=== PATIENT | male | born 1955 | race Caucasian/White ===

== ENCOUNTER 2023-09-29 20:41 | Inpatient (IN) | payer MEDICARE, OTHER ==
[~2023-09-29] VITALS: Ht 185.4 cm; Wt 79.5 kg
[2023-09-29 22:03] LABS: BASOPHILS % (AUTO) 0.1 % (0.0-2.0); EOSINOPHILS % (AUTO) 0.1 % (0.0-6.0); HEMATOCRIT 36 % (39-51); HEMOGLOBIN 12.3 g/dL (13.5-17.5); LYMPHOCYTES # (AUTO) 0.7 K/uL (0.8-4.8); LYMPHOCYTES % (AUTO) 3.4 % (20.0-44.0); MEAN CORPUSCULAR HEMOGLOBIN 33 PG (26.0-33.0); MEAN CORPUSCULAR HGB CONC 34 g/dl (31.0-36.0); MEAN CORPUSCULAR VOLUME 97 fL (80-96); MONOCYTES # (AUTO) 2.5 K/uL (0.1-1.30); MONOCYTES % (AUTO) 12.7 % (2.0-12.0); NEUTROPHILS # (AUTO) 16.5 K/uL (1.8-8.9); NEUTROPHILS % (AUTO) 83.7 % (43.0-81.0); PLATELET COUNT (AUTO) 327 K/uL (150-450); RED BLOOD CELL COUNT(AUTO) 3.73 MIL/uL (4.5-6.0); RED CELL DISTRIBUTION WIDTH 13.1 % (11.5-15.0); WHITE BLOOD COUNT (AUTO) 19.7 K/uL (4.3-11.0)
[2023-09-29] MEDS ORDERED: VANCOMYCIN 1 GM /D5W 250 ML PB IV ONE (22:09)
[2023-09-29] MEDS ORDERED: CLINDAMYCIN 900 MG/6 ML VIAL ONE (22:09)
[2023-09-29] MEDS ORDERED: LEVOFLOXACIN 750 MG /D5W 150ML 150 ML IV ONE (22:10)
[2023-09-29 22:17] LABS: ALANINE AMINOTRANSFERASE 80 U/L (12-78); ALBUMIN 1.7 g/dL (3.4-5.0); ALKALINE PHOSPHATASE 176 U/L (46-116); ASPARTATE AMINOTRANSFERASE 60 U/L (15-37); BILIRUBIN,DIRECT 0.2 mg/dL (0.0-0.2); BILIRUBIN,TOTAL 0.5 mg/dL (0.2-1.0); CALCIUM, SERUM 7.8 mg/dL (8.5-10.1); CARBON DIOXIDE 26 mmol/L (21-32); CHLORIDE 92 mmol/L (98-107); CREATININE 1.1 mg/dL (0.6-1.3); GLUCOSE 111 mg/dL (74-106); POTASSIUM 3.7 mmol/L (3.5-5.1); SODIUM SERUM 126 mmol/L (136-145); UREA NITROGEN, BLOOD 21 mg/dL (7-18)
[2023-09-29 22:19] LABS: LACTIC ACID 1.1 mmol/L (0.4-2.0)
[2023-09-29 22:27] LABS: INR 0.97 (0.91-1.10); PARTIAL THROMBOPLASTIN TIME 30.5 SEC (24.3-34.3)
[2023-09-29] MEDS: CLINDAMYCIN 900 MG in IV D5W 100 ML IV ONE (22:50)
[2023-09-29 23:00] VITALS: BP 123/75; TEMP 97.5; O2SAT 97
[2023-09-29 23:09] LABS: LYMPHOCYTES % (MANUAL) 1 % (16-48); MONOCYTES % (MANUAL) 11 % (0-11.0); NEUTROPHILS % (MANUAL) 88 (42-76); PLATELET ESTIMATE ADEQUATE
[2023-09-29 23:11] LABS: ANISOCYTOSIS 1+
[2023-09-29 23:26] LABS: APPEARANCE,URINE CLEAR (CLEAR); BILIRUBIN,URINE NEGATIVE (NEGATIVE); BLOOD, URINE NEGATIVE Ery/uL (NEGATIVE); COLOR,URINE YELLOW (YELLOW); KETONES,URINE NEGATIVE (NEGATIVE); LEUKOCYTE ESTERASE ,URINE NEGATIVE (NEGATIVE); NITRITE, URINE NEGATIVE (NEGATIVE); PROTEIN,URINE TRACE mg/dl (NEGATIVE); UGLUCOSE NEGATIVE (NEGATIVE); UROBILINOGEN,URINE 0.2 EU/dL (0.2)
[2023-09-29 23:39] LABS: ADD URINE CULTURE NO; BACTERIA,URINE Rare /HPF (None Seen); RBC,URINE 0-2 /HPF (0-2); SQUAMOUS EPITHELIAL CELL,UR Few /HPF (None Seen); WBC,URINE 0-2 /HPF (0-3)
[2023-09-29] MEDS ORDERED: Calcium Gluconate 0.465 MEQ/ML VIAL IV ONE (23:39)
[2023-09-29] MEDS: Calcium Gluconate 1GM/10ML 4.65 MEQ in IV NS 0.9% 100 ML IV ONE (23:45)
[2023-09-29] MEDS: VANCOMYCIN 1 GM in IV D5W 250 ML IV ONE (23:50)
[2023-09-30] VITALS: BP 123/75; TEMP 97.5; O2SAT 97
[2023-09-30] MEDS ORDERED: ONDANSETRON HCL/PF 4 MG/2 ML VIAL IVP PRN
[2023-09-30] MEDS ORDERED: Z GUARD REMEDY 4 OZ OINT TP PRN
[2023-09-30] MEDS ORDERED: MAG HYDROX/AL HYDROX/SIMETH 30 ML UDC PO PRN
[2023-09-30] MEDS ORDERED: ZOLPIDEM TARTRATE 5 MG TABLET PO PRN
[2023-09-30] MEDS: LEVOFLOXACIN 750 MG /D5W 150ML PIGGYBACK IV ONE (01:47)
[2023-09-30] MEDS: IV NS 0.9% 1,000 ML IV PRN (04:40)
[2023-09-30 06:54] LABS: BASOPHILS % (AUTO) 0.1 % (0.0-2.0); EOSINOPHILS % (AUTO) 0.2 % (0.0-6.0); HEMATOCRIT 33 % (39-51); HEMOGLOBIN 11.2 g/dL (13.5-17.5); LYMPHOCYTES # (AUTO) 0.7 K/uL (0.8-4.8); LYMPHOCYTES % (AUTO) 3.5 % (20.0-44.0); MEAN CORPUSCULAR HEMOGLOBIN 33 PG (26.0-33.0); MEAN CORPUSCULAR HGB CONC 34 g/dl (31.0-36.0); MEAN CORPUSCULAR VOLUME 97 fL (80-96); MONOCYTES # (AUTO) 2.5 K/uL (0.1-1.30); MONOCYTES % (AUTO) 12.9 % (2.0-12.0); NEUTROPHILS # (AUTO) 16.1 K/uL (1.8-8.9); NEUTROPHILS % (AUTO) 83.3 % (43.0-81.0); PLATELET COUNT (AUTO) 303 K/uL (150-450); RED BLOOD CELL COUNT(AUTO) 3.41 MIL/uL (4.5-6.0); WHITE BLOOD COUNT (AUTO) 19.4 K/uL (4.3-11.0)
[2023-09-30 07:08] LABS: THYROID STIMULATING HORMONE 1.21 uIU/mL (0.358-3.74)
[2023-09-30 07:19] LABS: BILIRUBIN,DIRECT 0.2 mg/dL (0.0-0.2); BILIRUBIN,TOTAL 0.6 mg/dL (0.2-1.0); CREATININE 0.9 mg/dL (0.6-1.3); PHOSPHORUS 3.8 mg/dL (2.5-4.9); POTASSIUM 3.9 mmol/L (3.5-5.1); TOTAL PROTEIN, SERUM 5.3 g/dL (6.4-8.2)
[2023-09-30 07:46] LABS: LACTIC ACID 0.8 mmol/L (0.4-2.0)
[2023-09-30 07:59] LABS: ALBUMIN 1.4 g/dL (3.4-5.0)
[2023-09-30 08:00] VITALS: BP 109/53; TEMP 97.2; O2SAT 95
[2023-09-30] MEDS: TRAMADOL HCL 50 MG TABLET PO PRN (08:17)
[2023-09-30] MEDS ORDERED: DILT-4 PO (09:14)
[2023-09-30] MEDS ORDERED: QUET25TA PO (09:14)
[2023-09-30] MEDS ORDERED: RIVA10TA PO (09:14)
[2023-09-30] MEDS ORDERED: ACET1TAB23 PO (09:14)
[2023-09-30] MEDS ORDERED: QUET50TA PO (09:14)
[2023-09-30] MEDS ORDERED: SULF1TAB48 PO (09:14)
[2023-09-30] MEDS ORDERED: VALA10002 PO (09:14)
[2023-09-30] MEDS ORDERED: FURO-145 PO (09:14)
[2023-09-30] MEDS ORDERED: SERT100T PO (09:14)
[2023-09-30] MEDS ORDERED: MEMA10TA PO (09:14)
[2023-09-30] MEDS ORDERED: DONE10TA44 PO (09:14)
[2023-09-30] MEDS ORDERED: ACET-2030 PO (09:14)
[2023-09-30] MEDS: VANCOMYCIN 1 GM in IV D5W 250 ML IV SCH (09:46)
[2023-09-30] MEDS: PANTOPRAZOLE 40 MG VIAL IV SCH (09:46)
[2023-09-30 14:01] LABS: HIV-1 p24 ANTIGEN NON REACTIVE (NONREACTIVE); HIV-1/2 ANTIBODY NON REACTIVE (NONREACTIVE)
[2023-09-30] MEDS ORDERED: IV NS 0.9% 250 ML IV ONE (14:14)
[2023-09-30] MEDS ORDERED: IOHEXOL-300 100 ML VIAL IV ONE (14:14)
[2023-09-30] MEDS ORDERED: CT SWABBABLE VALVE TRANS SET 1 EA INFUS.SET MC ONE (14:14)
[2023-09-30 16:00] VITALS: BP 117/71; TEMP 98.1; O2SAT 98
[2023-09-30] MEDS: LIDOCAINE 1%-EPI 1:100,000 20 ML VIAL TP ONE (16:08)
[2023-09-30] MEDS: CEFTRIAXONE 2 G in IV D5W 100 ML IV SCH (18:16)
[2023-09-30 20:00] VITALS: BP 147/67; TEMP 98.6; O2SAT 98
[2023-09-30] MEDS: MAGNESIUM HYDROXIDE 30 ML UDC PO PRN (22:24)
[2023-10-01 07:36] LABS: CALCIUM, SERUM 8.1 mg/dL (8.5-10.1); CARBON DIOXIDE 29 mmol/L (21-32); CHLORIDE 99 mmol/L (98-107); CREATININE 0.9 mg/dL (0.6-1.3); GLUCOSE 98 mg/dL (74-106); POTASSIUM 4.3 mmol/L (3.5-5.1); SODIUM SERUM 132 mmol/L (136-145); UREA NITROGEN, BLOOD 16 mg/dL (7-18)
[2023-10-01] MEDS: ACETAMINOPHEN 325 MG TABLET PO PRN (07:49)
[2023-10-01 08:00] VITALS: BP 109/86; TEMP 99; O2SAT 98
[2023-10-01 09:52] LABS: BASOPHILS % (AUTO) 0.3 % (0.0-2.0); EOSINOPHILS # (AUTO) 0.1 K/uL (0.0-0.7); EOSINOPHILS % (AUTO) 0.8 % (0.0-6.0); HEMATOCRIT 32 % (39-51); HEMOGLOBIN 10.9 g/dL (13.5-17.5); LYMPHOCYTES # (AUTO) 0.7 K/uL (0.8-4.8); LYMPHOCYTES % (AUTO) 3.8 % (20.0-44.0); MEAN CORPUSCULAR HEMOGLOBIN 33 PG (26.0-33.0); MEAN CORPUSCULAR HGB CONC 34 g/dl (31.0-36.0); MEAN CORPUSCULAR VOLUME 97 fL (80-96); MONOCYTES # (AUTO) 1.8 K/uL (0.1-1.30); MONOCYTES % (AUTO) 9.8 % (2.0-12.0); NEUTROPHILS # (AUTO) 15.3 K/uL (1.8-8.9); NEUTROPHILS % (AUTO) 85.3 % (43.0-81.0); PLATELET COUNT (AUTO) 345 K/uL (150-450); RED BLOOD CELL COUNT(AUTO) 3.28 MIL/uL (4.5-6.0); WHITE BLOOD COUNT (AUTO) 17.9 K/uL (4.3-11.0)
[2023-10-01 10:10] LABS: HEPATITIS B CORE AB, TOTAL Negative (Negative); HEPATITIS B SURFACE AB Non Reactive (.)
[2023-10-01] MEDS: PANTOPRAZOLE 40 MG TABLET.DR PO SCH (10:12)
[2023-10-01 10:47] LABS: PARTIAL THROMBOPLASTIN TIME 29.3 SEC (24.3-34.3); PROTHROMBIN TIME 10.6 SECS (9.2-11.1)
[2023-10-01 16:03] VITALS: BP 108/63; TEMP 98.2; O2SAT 99
[2023-10-01 18:36] LABS: THYROID STIMULATING HORMONE 1.92 uIU/mL (0.358-3.74)
[2023-10-01 20:00] VITALS: BP 129/74; TEMP 98.1; O2SAT 98
[2023-10-01] MEDS: LINEZOLID 600 MG TABLET PO SCH (20:14)
[2023-10-01] MEDS: MORPHINE SULFATE INJ 2 MG/ML DISP.SYRIN IV PRN (20:15)
[2023-10-01] MEDS ORDERED: VANCOMYCIN HCL 1.25 GM in IV D5W 250 ML IV SCH (22:00)
[2023-10-02 07:25] LABS: CALCIUM, SERUM 8.5 mg/dL (8.5-10.1); CREATININE 0.8 mg/dL (0.6-1.3); POTASSIUM 4.1 mmol/L (3.5-5.1)
[2023-10-02 07:30] VITALS: BP 133/68; TEMP 99.1; O2SAT 98
[2023-10-02 16:00] VITALS: BP 126/78; TEMP 97.5; O2SAT 94
[2023-10-02 20:00] VITALS: BP 168/68; TEMP 98.6; O2SAT 98
[2023-10-02 20:26] LABS: BASOPHILS % (AUTO) 0.2 % (0.0-2.0); EOSINOPHILS # (AUTO) 0.2 K/uL (0.0-0.7); EOSINOPHILS % (AUTO) 1.6 % (0.0-6.0); HEMATOCRIT 32 % (39-51); HEMOGLOBIN 10.8 g/dL (13.5-17.5); LYMPHOCYTES # (AUTO) 0.8 K/uL (0.8-4.8); MEAN CORPUSCULAR HEMOGLOBIN 33 PG (26.0-33.0); MEAN CORPUSCULAR HGB CONC 34 g/dl (31.0-36.0); MEAN CORPUSCULAR VOLUME 98 fL (80-96); MONOCYTES # (AUTO) 1.1 K/uL (0.1-1.30); MONOCYTES % (AUTO) 9.9 % (2.0-12.0); NEUTROPHILS # (AUTO) 9.1 K/uL (1.8-8.9); NEUTROPHILS % (AUTO) 81.3 % (43.0-81.0); PLATELET COUNT (AUTO) 387 K/uL (150-450); RED BLOOD CELL COUNT(AUTO) 3.27 MIL/uL (4.5-6.0); RED CELL DISTRIBUTION WIDTH 13.1 % (11.5-15.0); WHITE BLOOD COUNT (AUTO) 11.3 K/uL (4.3-11.0)
[2023-10-02 20:32] LABS: CREATININE 0.9 mg/dL (0.6-1.3)
[2023-10-03] MEDS: HYDROMORPHONE 1 MG/1 ML DISP.SYRIN IV PRN (00:59)
[2023-10-03] MEDS: MORPHINE SULFATE INJ 2 MG/ML DISP.SYRIN IV PRN (05:44)
[2023-10-03 08:00] VITALS: BP 136/81; TEMP 98.2; O2SAT 99
[2023-10-03 10:18] LABS: BASOPHILS % (AUTO) 0.4 % (0.0-2.0); EOSINOPHILS # (AUTO) 0.1 K/uL (0.0-0.7); EOSINOPHILS % (AUTO) 1.4 % (0.0-6.0); HEMATOCRIT 33 % (39-51); HEMOGLOBIN 11.4 g/dL (13.5-17.5); LYMPHOCYTES # (AUTO) 0.7 K/uL (0.8-4.8); LYMPHOCYTES % (AUTO) 6.9 % (20.0-44.0); MEAN CORPUSCULAR HEMOGLOBIN 33 PG (26.0-33.0); MEAN CORPUSCULAR HGB CONC 34 g/dl (31.0-36.0); MEAN CORPUSCULAR VOLUME 97 fL (80-96); MONOCYTES # (AUTO) 0.9 K/uL (0.1-1.30); MONOCYTES % (AUTO) 8.3 % (2.0-12.0); NEUTROPHILS # (AUTO) 8.6 K/uL (1.8-8.9); PLATELET COUNT (AUTO) 430 K/uL (150-450); RED BLOOD CELL COUNT(AUTO) 3.43 MIL/uL (4.5-6.0); RED CELL DISTRIBUTION WIDTH 12.8 % (11.5-15.0); WHITE BLOOD COUNT (AUTO) 10.3 K/uL (4.3-11.0)
[2023-10-03 10:30] LABS: CALCIUM, SERUM 8.7 mg/dL (8.5-10.1); CREATININE 0.8 mg/dL (0.6-1.3); POTASSIUM 3.9 mmol/L (3.5-5.1)
[2023-10-03 16:18] VITALS: BP 119/61; TEMP 98.1; O2SAT 99
[2023-10-03 20:00] VITALS: BP 116/65; TEMP 97.8; O2SAT 97
[2023-10-04 07:30] VITALS: BP 150/87; TEMP 98.2; O2SAT 94
[2023-10-04 07:46] LABS: CALCIUM, SERUM 8.5 mg/dL (8.5-10.1); CREATININE 0.7 mg/dL (0.6-1.3); POTASSIUM 4.2 mmol/L (3.5-5.1)
[2023-10-04] MEDS ORDERED: SERTRALINE HCL 50 MG TABLET PO SCH (09:00)
[2023-10-04] MEDS ORDERED: ONDANSETRON HCL/PF 4 MG/2 ML VIAL IVP PRN (09:00)
[2023-10-04] MEDS: RIVAROXABAN 10 MG TABLET PO SCH (09:05)
[2023-10-04] MEDS: MEMANTINE HCL 5 MG TABLET PO SCH (09:06)
[2023-10-04] MEDS: QUETIAPINE FUMARATE 25 MG TABLET PO SCH (09:06)
[2023-10-04] MEDS: DILTIAZEM HCL CD 240 MG PO SCH (09:07)
[2023-10-04] MEDS: SERTRALINE HCL 50 MG TABLET PO SCH (09:07)
[2023-10-04] MEDS: FUROSEMIDE 20 MG TABLET PO SCH (09:08)
[2023-10-04 11:09] LABS: BASOPHILS % (AUTO) 0.4 % (0.0-2.0); EOSINOPHILS # (AUTO) 0.2 K/uL (0.0-0.7); EOSINOPHILS % (AUTO) 2.1 % (0.0-6.0); HEMATOCRIT 33 % (39-51); HEMOGLOBIN 11.2 g/dL (13.5-17.5); LYMPHOCYTES # (AUTO) 0.6 K/uL (0.8-4.8); LYMPHOCYTES % (AUTO) 8.3 % (20.0-44.0); MEAN CORPUSCULAR HEMOGLOBIN 33 PG (26.0-33.0); MEAN CORPUSCULAR HGB CONC 34 g/dl (31.0-36.0); MEAN CORPUSCULAR VOLUME 97 fL (80-96); MONOCYTES # (AUTO) 0.7 K/uL (0.1-1.30); MONOCYTES % (AUTO) 9.4 % (2.0-12.0); NEUTROPHILS # (AUTO) 6.1 K/uL (1.8-8.9); NEUTROPHILS % (AUTO) 79.8 % (43.0-81.0); PLATELET COUNT (AUTO) 507 K/uL (150-450); RED BLOOD CELL COUNT(AUTO) 3.38 MIL/uL (4.5-6.0); WHITE BLOOD COUNT (AUTO) 7.7 K/uL (4.3-11.0)
[2023-10-04 16:00] VITALS: BP 111/59; TEMP 97.5; O2SAT 99
[2023-10-04] MEDS: DONEPEZIL 5 MG TABLET PO SCH (21:58)
[2023-10-05] VITALS (9 sets, daily range): BP systolic 117–134; BP diastolic 69–73; TEMP 97.9–98.2; O2SAT 95–98
[2023-10-05 07:06] LABS: CALCIUM, SERUM 8.8 mg/dL (8.5-10.1); CREATININE 0.9 mg/dL (0.6-1.3); POTASSIUM 4.3 mmol/L (3.5-5.1)
[2023-10-05] MEDS ORDERED: FLUTICASONE/SALMETEROL DISKUS IH SCH (09:00)
[2023-10-05] MEDS: BUDESONIDE RESPULE INH 0.5 MG/2 ML AMPUL.NEB NEB SCH (09:00)
[2023-10-05] MEDS ORDERED: ALBUTEROL FS 2.5 MG/0.5 ML VIAL.NEB NEB PRN (09:00)
[2023-10-05] MEDS: ALBUTEROL FS 2.5 MG/0.5 ML VIAL.NEB NEB SCH (14:17)
[2023-10-05] MEDS: VANCOMYCIN HCL 1.25 GM in IV D5W 250 ML IV SCH (20:16)
[2023-10-06 08:09] LABS: CALCIUM, SERUM 9.1 mg/dL (8.5-10.1); CREATININE 0.8 mg/dL (0.6-1.3); POTASSIUM 3.6 mmol/L (3.5-5.1)
[2023-10-06 13:32] VITALS: O2SAT 99
[2023-10-06 13:44] VITALS: O2SAT 99
[2023-10-06] MEDS: HYDROCODONE/APAP 5/325MG TABLET PO PRN (14:33)
[2023-10-06 16:00] VITALS: BP 117/71; TEMP 98.4; O2SAT 98
[2023-10-06 16:20] VITALS: O2SAT 96
[2023-10-06 16:39] VITALS: O2SAT 99
[2023-10-06 20:15] VITALS: BP 99/60; TEMP 97.5; O2SAT 97
[2023-10-07] VITALS (13 sets, daily range): BP systolic 94–125; BP diastolic 45–72; TEMP 97.3–98.4; O2SAT 95–99
[2023-10-07] MEDS: HYDROCODONE/APAP 10/325MG TABLET PO PRN (01:29)
[2023-10-07 06:07] LABS: RAPID PLASMA REAGIN QUAL. Non Reactive (Non Reactive)
[2023-10-07 07:12] LABS: BASOPHILS % (AUTO) 0.4 % (0.0-2.0); EOSINOPHILS # (AUTO) 0.2 K/uL (0.0-0.7); EOSINOPHILS % (AUTO) 2.4 % (0.0-6.0); HEMATOCRIT 33 % (39-51); HEMOGLOBIN 11.4 g/dL (13.5-17.5); LYMPHOCYTES # (AUTO) 1.2 K/uL (0.8-4.8); LYMPHOCYTES % (AUTO) 12.9 % (20.0-44.0); MEAN CORPUSCULAR HEMOGLOBIN 33 PG (26.0-33.0); MEAN CORPUSCULAR HGB CONC 34 g/dl (31.0-36.0); MEAN CORPUSCULAR VOLUME 96 fL (80-96); MONOCYTES # (AUTO) 1.3 K/uL (0.1-1.30); NEUTROPHILS # (AUTO) 6.3 K/uL (1.8-8.9); NEUTROPHILS % (AUTO) 70.3 % (43.0-81.0); PLATELET COUNT (AUTO) 632 K/uL (150-450); RED BLOOD CELL COUNT(AUTO) 3.46 MIL/uL (4.5-6.0); RED CELL DISTRIBUTION WIDTH 13.1 % (11.5-15.0)
[2023-10-07 07:44] LABS: CALCIUM, SERUM 8.3 mg/dL (8.5-10.1); CREATININE 0.8 mg/dL (0.6-1.3); POTASSIUM 3.9 mmol/L (3.5-5.1)
[2023-10-07] MEDS: MORPHINE SULFATE INJ 2 MG/ML DISP.SYRIN IV PRN (12:58)
[2023-10-08] VITALS (15 sets, daily range): BP systolic 117–155; BP diastolic 67–71; TEMP 97.3–97.9; O2SAT 91–100
[2023-10-08 06:48] LABS: BASOPHILS # (AUTO) 0.1 K/uL (0.0-0.2); BASOPHILS % (AUTO) 0.5 % (0.0-2.0); EOSINOPHILS # (AUTO) 0.2 K/uL (0.0-0.7); EOSINOPHILS % (AUTO) 1.8 % (0.0-6.0); HEMATOCRIT 37 % (39-51); HEMOGLOBIN 12.5 g/dL (13.5-17.5); LYMPHOCYTES # (AUTO) 1.3 K/uL (0.8-4.8); MEAN CORPUSCULAR HEMOGLOBIN 33 PG (26.0-33.0); MEAN CORPUSCULAR HGB CONC 34 g/dl (31.0-36.0); MEAN CORPUSCULAR VOLUME 97 fL (80-96); MONOCYTES # (AUTO) 1.2 K/uL (0.1-1.30); MONOCYTES % (AUTO) 12.4 % (2.0-12.0); NEUTROPHILS # (AUTO) 7.1 K/uL (1.8-8.9); NEUTROPHILS % (AUTO) 72.3 % (43.0-81.0); PLATELET COUNT (AUTO) 702 K/uL (150-450); RED BLOOD CELL COUNT(AUTO) 3.81 MIL/uL (4.5-6.0); RED CELL DISTRIBUTION WIDTH 12.9 % (11.5-15.0); WHITE BLOOD COUNT (AUTO) 9.8 K/uL (4.3-11.0)
[2023-10-08 07:21] LABS: CREATININE 0.8 mg/dL (0.6-1.3); POTASSIUM 3.7 mmol/L (3.5-5.1)
[2023-10-09] VITALS (9 sets, daily range): BP systolic 106–120; BP diastolic 57–72; TEMP 97.9–98.6; O2SAT 97–100
[2023-10-09 06:29] LABS: BASOPHILS % (AUTO) 0.6 % (0.0-2.0); EOSINOPHILS # (AUTO) 0.1 K/uL (0.0-0.7); EOSINOPHILS % (AUTO) 1.9 % (0.0-6.0); HEMATOCRIT 33 % (39-51); HEMOGLOBIN 11.2 g/dL (13.5-17.5); LYMPHOCYTES # (AUTO) 1.2 K/uL (0.8-4.8); LYMPHOCYTES % (AUTO) 15.1 % (20.0-44.0); MEAN CORPUSCULAR HEMOGLOBIN 33 PG (26.0-33.0); MEAN CORPUSCULAR HGB CONC 35 g/dl (31.0-36.0); MEAN CORPUSCULAR VOLUME 96 fL (80-96); MONOCYTES % (AUTO) 12.7 % (2.0-12.0); NEUTROPHILS # (AUTO) 5.5 K/uL (1.8-8.9); NEUTROPHILS % (AUTO) 69.7 % (43.0-81.0); PLATELET COUNT (AUTO) 591 K/uL (150-450); RED BLOOD CELL COUNT(AUTO) 3.39 MIL/uL (4.5-6.0); RED CELL DISTRIBUTION WIDTH 12.6 % (11.5-15.0); WHITE BLOOD COUNT (AUTO) 7.9 K/uL (4.3-11.0)
[2023-10-09 06:53] LABS: CALCIUM, SERUM 8.6 mg/dL (8.5-10.1); CREATININE 0.7 mg/dL (0.6-1.3); POTASSIUM 3.8 mmol/L (3.5-5.1)
[2023-10-09] MEDS: IV NS 0.9% 1,000 ML IV SCH (10:37)
[2023-10-10] VITALS (13 sets, daily range): BP systolic 105–125; BP diastolic 61–68; TEMP 97.5–97.9; O2SAT 96–100
[2023-10-10] MEDS: ALBUTEROL FS 2.5 MG/3 ML VIAL.NEB NEB PRN (04:51)
[2023-10-10 07:43] LABS: BASOPHILS # (AUTO) 0.1 K/uL (0.0-0.2); BASOPHILS % (AUTO) 0.7 % (0.0-2.0); EOSINOPHILS # (AUTO) 0.2 K/uL (0.0-0.7); EOSINOPHILS % (AUTO) 2.1 % (0.0-6.0); HEMATOCRIT 36 % (39-51); HEMOGLOBIN 12.3 g/dL (13.5-17.5); LYMPHOCYTES # (AUTO) 1.3 K/uL (0.8-4.8); LYMPHOCYTES % (AUTO) 15.7 % (20.0-44.0); MEAN CORPUSCULAR HEMOGLOBIN 33 PG (26.0-33.0); MEAN CORPUSCULAR HGB CONC 34 g/dl (31.0-36.0); MEAN CORPUSCULAR VOLUME 97 fL (80-96); MONOCYTES # (AUTO) 0.9 K/uL (0.1-1.30); MONOCYTES % (AUTO) 11.4 % (2.0-12.0); NEUTROPHILS # (AUTO) 5.8 K/uL (1.8-8.9); NEUTROPHILS % (AUTO) 70.1 % (43.0-81.0); PLATELET COUNT (AUTO) 732 K/uL (150-450); RED BLOOD CELL COUNT(AUTO) 3.71 MIL/uL (4.5-6.0); WHITE BLOOD COUNT (AUTO) 8.3 K/uL (4.3-11.0)
[2023-10-10 08:00] LABS: CALCIUM, SERUM 9.4 mg/dL (8.5-10.1); CREATININE 0.9 mg/dL (0.6-1.3); POTASSIUM 3.6 mmol/L (3.5-5.1)
[2023-10-10] MEDS: VANCOMYCIN HCL 1.25 GM in IV D5W 250 ML IV SCH (19:54)
[2023-10-11 07:37] LABS: BASOPHILS # (AUTO) 0.1 K/uL (0.0-0.2); BASOPHILS % (AUTO) 0.9 % (0.0-2.0); EOSINOPHILS # (AUTO) 0.1 K/uL (0.0-0.7); EOSINOPHILS % (AUTO) 1.9 % (0.0-6.0); HEMATOCRIT 33 % (39-51); HEMOGLOBIN 11.2 g/dL (13.5-17.5); LYMPHOCYTES % (AUTO) 13.9 % (20.0-44.0); MEAN CORPUSCULAR HEMOGLOBIN 33 PG (26.0-33.0); MEAN CORPUSCULAR HGB CONC 34 g/dl (31.0-36.0); MEAN CORPUSCULAR VOLUME 97 fL (80-96); MONOCYTES # (AUTO) 0.8 K/uL (0.1-1.30); MONOCYTES % (AUTO) 11.3 % (2.0-12.0); NEUTROPHILS # (AUTO) 5.3 K/uL (1.8-8.9); PLATELET COUNT (AUTO) 677 K/uL (150-450); RED BLOOD CELL COUNT(AUTO) 3.39 MIL/uL (4.5-6.0); WHITE BLOOD COUNT (AUTO) 7.3 K/uL (4.3-11.0)
[2023-10-11 07:46] LABS: CREATININE 0.8 mg/dL (0.6-1.3); POTASSIUM 3.7 mmol/L (3.5-5.1)
[2023-10-11 08:00] VITALS: BP 144/71; TEMP 98.3; O2SAT 100
[2023-10-11] MEDS ORDERED: VANCOMYCIN HCL 1.25 GM in IV D5W 250 ML IV SCH (08:00)
[2023-10-11 16:00] VITALS: BP 114/65; TEMP 97.5; O2SAT 98
[2023-10-11] MEDS: IV NS 0.9% 1,000 ML IV PRN (17:38)
[2023-10-11 19:58] VITALS: O2SAT 97
[2023-10-11 20:00] VITALS: BP 113/61; TEMP 98.2; O2SAT 99
[2023-10-11 20:13] VITALS: O2SAT 99
[2023-10-12] VITALS (13 sets, daily range): BP systolic 110–141; BP diastolic 56–77; TEMP 97.7–98.8; O2SAT 96–100
[2023-10-12 06:45] LABS: BASOPHILS # (AUTO) 0.1 K/uL (0.0-0.2); EOSINOPHILS # (AUTO) 0.2 K/uL (0.0-0.7); EOSINOPHILS % (AUTO) 2.7 % (0.0-6.0); HEMATOCRIT 31 % (39-51); HEMOGLOBIN 10.9 g/dL (13.5-17.5); LYMPHOCYTES # (AUTO) 1.2 K/uL (0.8-4.8); LYMPHOCYTES % (AUTO) 15.8 % (20.0-44.0); MEAN CORPUSCULAR HEMOGLOBIN 34 PG (26.0-33.0); MEAN CORPUSCULAR HGB CONC 36 g/dl (31.0-36.0); MEAN CORPUSCULAR VOLUME 96 fL (80-96); MONOCYTES % (AUTO) 12.8 % (2.0-12.0); NEUTROPHILS # (AUTO) 5.1 K/uL (1.8-8.9); NEUTROPHILS % (AUTO) 67.7 % (43.0-81.0); PLATELET COUNT (AUTO) 575 K/uL (150-450); RED BLOOD CELL COUNT(AUTO) 3.21 MIL/uL (4.5-6.0); WHITE BLOOD COUNT (AUTO) 7.5 K/uL (4.3-11.0)
[2023-10-12 06:51] LABS: CALCIUM, SERUM 8.4 mg/dL (8.5-10.1); CREATININE 0.7 mg/dL (0.6-1.3); POTASSIUM 3.4 mmol/L (3.5-5.1)
[2023-10-12] MEDS: POTASSIUM CHLORIDE 20 MEQ TAB.PRT.SR PO SCH (09:47)
[2023-10-12] MEDS ORDERED: VANC1.2526 IV (10:32)
[2023-10-12] MEDS ORDERED: HYDR-3980 PO (10:32)
[2023-10-12] MEDS ORDERED: SERT50TA PO (10:32)
[2023-10-12] MEDS ORDERED: PANT40TA49 PO (10:32)
[2023-10-12] MEDS ORDERED: GABA-532 PO (10:33)
[2023-10-12] MEDS: LIDOCAINE 5% (PATCH) 1 EA PATCH TP SCH (14:37)
[2023-10-12] MEDS: DICLOFENAC TOPICAL 100 GM TUBE TP PRN (14:38)
[2023-10-12] MEDS: HYDROCODONE/APAP 10/325MG TABLET PO PRN (17:31)
[2023-10-13] VITALS (8 sets, daily range): BP systolic 105–131; BP diastolic 60–80; TEMP 98.2–99.3; O2SAT 96–100
[2023-10-13 08:23] LABS: CALCIUM, SERUM 9.2 mg/dL (8.5-10.1); CREATININE 0.8 mg/dL (0.6-1.3); POTASSIUM 3.6 mmol/L (3.5-5.1)
[2023-10-13] MEDS: GABAPENTIN 100 MG CAPSULE PO SCH (12:28)
[2023-10-13] MEDS: VANCOMYCIN 1 GM in IV D5W 250 ML IV SCH (20:46)
[2023-10-13] MEDS: QUETIAPINE FUMARATE 25 MG TABLET PO PRN (21:44)
[2023-10-14] VITALS (11 sets, daily range): BP systolic 118–141; BP diastolic 58–70; TEMP 97.5–97.9; O2SAT 97–100
[2023-10-14 07:17] LABS: CALCIUM, SERUM 9.2 mg/dL (8.5-10.1); CREATININE 0.8 mg/dL (0.6-1.3); POTASSIUM 3.5 mmol/L (3.5-5.1)
[2023-10-14] MEDS: QUETIAPINE FUMARATE 25 MG TABLET PO SCH (09:29)
[2023-10-15] VITALS (9 sets, daily range): BP systolic 134; BP diastolic 87; TEMP 97.7; O2SAT 97–99
[2023-10-15 07:50] LABS: CALCIUM, SERUM 9.4 mg/dL (8.5-10.1); CREATININE 0.7 mg/dL (0.6-1.3); POTASSIUM 3.4 mmol/L (3.5-5.1)
[2023-10-15] MEDS: POTASSIUM CHLORIDE 20 MEQ TAB.PRT.SR PO SCH (12:53)
[2023-10-15] MEDS ORDERED: Quetiapine Fumarate PO (14:49)
== END 2023-10-15 18:59 | DRG 871 ==
LOC: ER 20:45 → MED 23:16
PROVIDERS: ADMIT Nurse Practitioner Family; ATTEND Nurse Practitioner Acute Care
PROC: 00JU3ZZ Inspection of Spinal Canal, Percutaneous Approach (ICD-10-PCS; principal; 2023-10-03)
DX: A41.9 Sepsis, unspecified organism (principal); G93.41 Metabolic encephalopathy; E87.1 Hypo-osmolality and hyponatremia; L03.116 Cellulitis of left lower limb; F03.93 Unspecified dementia, unspecified severity, with mood disturbance; F84.5 Asperger's syndrome; B02.29 Other postherpetic nervous system involvement; E46 Unspecified protein-calorie malnutrition; F03.94 Unspecified dementia, unspecified severity, with anxiety; E86.0 Dehydration; G47.33 Obstructive sleep apnea (adult) (pediatric); M79.7 Fibromyalgia; Z86.73 Personal history of transient ischemic attack (TIA), and cerebral infarction without residual deficits; D63.8 Anemia in other chronic diseases classified elsewhere; E86.1 Hypovolemia; E88.09 Other disorders of plasma-protein metabolism, not elsewhere classified; F43.10 Post-traumatic stress disorder, unspecified; G89.4 Chronic pain syndrome; Z79.899 Other long term (current) drug therapy; Z88.0 Allergy status to penicillin; Z86.19 Personal history of other infectious and parasitic diseases; F32.A Depression, unspecified; R74.01 Elevation of levels of liver transaminase levels; R73.9 Hyperglycemia, unspecified; G31.84 Mild cognitive impairment of uncertain or unknown etiology; M47.816 Spondylosis without myelopathy or radiculopathy, lumbar region; M54.2 Cervicalgia; F41.9 Anxiety disorder, unspecified; R22.32 Localized swelling, mass and lump, left upper limb; J44.89 Other specified chronic obstructive pulmonary disease; Z79.891 Long term (current) use of opiate analgesic; B95.62 Methicillin resistant Staphylococcus aureus infection as the cause of diseases classified elsewhere; M51.36 Other intervertebral disc degeneration, lumbar region; S76.011A Strain of muscle, fascia and tendon of right hip, initial encounter; X58.XXXA Exposure to other specified factors, initial encounter; Y93.9 Activity, unspecified; Y92.009 Unspecified place in unspecified non-institutional (private) residence as the place of occurrence of the external cause; Z68.23 Body mass index [BMI] 23.0-23.9, adult
CPT/HCPCS: 36415; 62270; 72148-TC; 73502; 73560-TC; 73701-TC; 73721-TC; 80048-TC; 80061-TC; 80076-TC; 80202-TC; 81001; 82150-TC; 82607-TC; 83605-TC; 83735-TC; 83921; 84100-TC; 84443-TC; 84484-TC; 85025-TC; 85610-TC; 85652-TC; 85730-TC; 86140-TC; 86592; 86593; 86704; 86706; 86803; 87040-TC; 87086-TC; 87340; 87806; 93307-TC; 93971-TC; 94660; 94760-TC; 94761-TC; 94762-TC; 94799-TC; 97110-TC; 97116-TC; 97530-TC; A4223; A6253; A6403; G0378; J0610; J0696; J1170; J1956; J2270; J2470; J3370; J3490; J7030; J7040; J7050; J7060; Q9967